=== PATIENT | male | born 1950 | race Caucasian/White ===

== ENCOUNTER 2016-09-15 12:51 | Inpatient (IN) | payer BC ==
[~2016-09-15] VITALS: Ht 177.8 cm; Wt 95.5 kg
--- NOTE | ~2016-09-15 | OP ---
PATIENT NAME: DAISY NG MEDICAL RECORD: [id number] :54 LOCATION:[facility] ADMISSION DATE:09/15/16 SURGEON: DAMIEN FRANKS MD DATE OF OPERATION: 09/16/2016 PREOPERATIVE DIAGNOSES: 1. Left foot abscess. 2. Hypertension. POSTOPERATIVE DIAGNOSES: 1. Left foot abscess. 2. Hypertension. PROCEDURE: I&D of the left foot. SURGEON: Damien Franks MD REPORT OF PROCEDURE: The patient's left foot was prepped and draped in sterile fashion. A skin incision was made through an area of necrosis between the great and the second toe in the left foot. Once we did this, we encountered a small pocket of purulence and cultures were taken times 2. We opened up this pocket and irrigated out any of the necrotic tissue and purulence using peroxide and saline solution. At the conclusion, there was good clear return of fluid and no sign of any further pockets present. We then packed the wound with half inch packing strips and dressed it with 4 x 4s and Kerlix. COMPLICATIONS: None. CONDITION: Stable. ANESTHESIA: Regional. BLOOD LOSS: Minimal. TRANSINT:[id number] Voice Confirmation ID: [id number] DOCUMENT ID: [id number] DAMIEN FRANKS MD CC: [id number] DICTATION DATE: 10/03/16 1256 DIRECTOR OF PULMONARY UNIT: 10/03/162041 DIS IN 09/16/16 [facility] [address] [place] [address]
--- NOTE | ~2016-09-15 | DS ---
PATIENT:DAISY NG :54 MEDICAL RECORD: [id number] DISCHARGE SUMMARY ADMISSION DATE: 09/15/16 DISCHARGE DATE: 09/16/16 DATE OF ADMISSION: 09/15/2016 DATE OF DISCHARGE: 09/16/2016 ADMISSION DIAGNOSES: 1. Left foot cellulitis. 2. Hypertension. DISCHARGE DIAGNOSES: 1. Left foot cellulitis/abscess. 2. Hypertension. PROCEDURE: I&D of the left foot. CONSULTATIONS: None. REPORT OF HOSPITALIZATION: The patient was admitted to the hospital through the clinic for IV antibiotics for an erythematous cellulitic area on the right foot. There was some necrotic tissue present, but this appeared to be quite shallow. By the following morning, the swelling had gone down significantly and we can tell there was a fluid collection present consistent with an abscess. He was taken to the operating room where he underwent an incision and drainage. Cultures were taken. Following this, the patient was discharged home. The patient was placed on Bactrim b.i.d. for the infection. The patient's had recently been in the hospital with an MSSA infection. DISCHARGE INSTRUCTIONS: Return to clinic or call with any questions, concerns, fevers, chills, nausea, vomiting or worsening abdominal pain. ACTIVITIES: As tolerated. FOLLOWUP: In clinic with me in 1 week. DISCHARGE MEDICATIONS: 1. Aspirin 81 mg daily. 2. [place] 10 p.r.n. 3. Bactrim-DS 1 tab p.o. b.i.d. TRANSINT:[id number] Voice Confirmation ID: [id number] DOCUMENT ID: [id number] DAMIEN FRANKS MD CC: [id number] DICTATION DATE: 10/03/16 1254 MARKET RESEARCH SPECIALIST: 10/04/16 0236 DIS IN 09/16/16 [facility] [address] [place] [id number]
[~2016-09-15 12:51] MED LIST: BAYER CHEWABLE81 MG PO; HYDROCODONE-APA1 TAB PO
[2016-09-15 14:02] VITALS: BP 142/79
[2016-09-15 14:14] VITALS: Ht 177.8 cm; Wt 95.5 kg
[2016-09-15 15:28] LABS: BASOPHILS 0.3 % (0-2); EOSINOPHILS 3.2 % (0-7); HEMATOCRIT 41.9 % (42.0-54.0); HEMOGLOBIN 14.1 g/dL (13.5-17.5); IMMATURE GRANULOCYTES 0.3 % (0-5); LYMPHOCYTES 18.3 % (15-50); MCH 30.3 pg (26.0-34.0); MCHC 33.7 g/dL (31.0-37.0); MCV 90.1 fL (80.0-100.0); MEAN PLATELET VOLUME 12.1 fL (7.4-10.4); MONOCYTES 9.9 % (2-11); PLATELET COUNT 184 10x3/uL (130-400); RBC 4.65 10x6/uL (4.20-6.10); RDW 13.7 % (11.5-14.5); WBC 6.8 10x3/uL (4.8-10.8)
--- NOTE | 2016-09-15 18:45 | NUR ---
REMAINS WITHOUT DISTRESS.DENIES NEEDS.CALL LIGHT IN REACH
[2016-09-15 20:00] VITALS: BP 144/71
--- NOTE | 2016-09-15 20:00 | NUR ---
ASSESSMENT PER FLOWSHEET. DRESSING TO LEFT FOOT C/D/I. PT SITTING UPRIGHT IN CHAIR AT BEDSIDE WITH BOTH LEGS ELEVATED. IV PATENT LEFT FOREARM SALINE LOCKED.
--- NOTE | 2016-09-15 21:15 | NUR ---
MEDS GIVEN PER MAR.
--- NOTE | 2016-09-16 | NUR ---
RESTING IN BED DENIES PAIN OR DISCOMFORT.
[2016-09-16 04:00] VITALS: BP 122/67
--- NOTE | 2016-09-16 05:08 | NUR ---
EYES CLOSED RESPIRATIONS WITH EASE AND UNLABORED. DENIES PAIN OR DISCOMFORT.
--- NOTE | 2016-09-16 08:02 | NUR ---
AWAKE AND ALERT AT THIS TIME. DRESSING TO RIGHT FOOT WITHOUT DRAINAGE. SCHEDULED ASPIRIN ADMINISTERED AT THIS TIME. ASSESSMENT PERFORMED PER FLOWSHEET. CALL LIGHT IN REACH, WILL CONTINUE WITH PLAN OF CARE.
[2016-09-16 08:18] VITALS: BP 127/81
--- NOTE | 2016-09-16 09:20 | NUR ---
PT NPO FOR SURGERY AT THIS TIME. CONSENT FORMS SIGNED AND WITNESSED AND HIBICLENS PROVIDED. CALL LIGHT IN REACH, WILL CONTINUE WITH PLAN OF CARE.
[2016-09-16 11:47] VITALS: BP 152/86
[2016-09-16] MEDS ORDERED: HYDROCODONE-APA1 TAB PO (14:58)
[2016-09-16] MEDS ORDERED: BACTRIM DS TABL1 TAB PO (14:58)
[2016-09-16 15:07] VITALS: BP 122/90
--- NOTE | 2016-09-16 15:15 | NUR ---
RECEIVED FROM SURGERY PER BED. DRESSING NOTED TO LEFT FOOT/TOE CLEAN DRY AND INTACT. NO COMPLAINTS OF PAIN OR DISCOMFORT. VS 97.0 75 18 122/90 OXYGEN RA 100%. DR FRANKS HERE AND IS DISCHARGING PATIENT. CALL LIGHT IN REACH. TRAY ORDERED
--- NOTE | 2016-09-16 16:41 | NUR ---
IV REMOVED FROM ARM WITH TIP INTACT. DISCHARGE INSTRUCTIONS REVIEWED WT PT AND SPOUSE. QUESITONS ANSWERED. DISCHARGED WITH BELONGINGS IN WC TO FRONT DOOR.
[2016-09-26 18:10] LABS: AEROBE ID Preliminary report (()); RESULT 1 Gram positive rods (())
== END 2016-09-16 16:45 | disposition home or self-care (01) | DRG 603 ==
LOC: D.MS 12:51 → OBSVTIME 12:51 → D.MS 12:53
PROVIDERS: ADMIT Surgery
PROC: 0H9NXZZ Drainage of Left Foot Skin, External Approach (ICD-10-PCS; principal; 2016-09-16 12:15)
DX: L03.115 Cellulitis of right lower limb (principal); R21 Rash and other nonspecific skin eruption

== ENCOUNTER → 2017-10-29 14:30 | Outpatient (CLI) | payer MEDICARE, BC ==
[2016-09-15 14:14] VITALS: BMI 30.1
[~2017-10-29 14:30] MED LIST changes: +BACTRIM DS TABL1 TAB PO
== END | disposition home or self-care (01) ==
LOC: D.CT 14:30
DX: R93.8 Abnormal findings on diagnostic imaging of other specified body structures (principal)

== ENCOUNTER → 2018-01-15 11:06 | Outpatient (CLI) | payer MEDICARE, BC ==
[2016-09-15 14:14] VITALS: BMI 30.1
== END | disposition home or self-care (01) ==
LOC: D.CT 11:06
DX: R93.89 Abnormal findings on diagnostic imaging of other specified body structures (principal)

== ENCOUNTER → 2018-03-02 15:35 | Outpatient (CLI) | payer MEDICARE, BC ==
[2016-09-15 14:14] VITALS: BMI 30.1
[2018-03-07 10:07] LABS: FUNGAL - ASP FLAVUS Negative (Neg:<1:1); FUNGAL - ASP NIGER Negative (Neg:<1:1); FUNGAL - ASPER FUMIGATUS Negative (Neg:<1:1)
== END | disposition home or self-care (01) ==
LOC: D.LABREF 15:35
PROVIDERS: Internal Medicine Pulmonary Disease
DX: R91.1 Solitary pulmonary nodule (principal)

== ENCOUNTER 2018-06-01 08:07 | Day surgery (SDC) | payer MEDICARE, BC ==
[~2018-06-01] VITALS: Ht 177.8 cm; Wt 90.7 kg
[2018-06-01 08:34] LABS: HEMATOCRIT 42.2 % (42.0-54.0); MCH 30.1 pg (26.0-34.0); MCHC 33.2 g/dL (31.0-37.0); MCV 90.8 fL (80.0-100.0); MEAN PLATELET VOLUME 11.3 fL (7.4-10.4); RBC 4.65 10x6/uL (4.20-6.10); RDW 14.2 % (11.5-14.5); WBC 4.9 10x3/uL (4.8-10.8)
[2018-06-01 10:01] VITALS: BP 151/85; BMI 28.7
--- NOTE | 2018-06-01 13:55 | NUR ---
[address] FERRER. INFORMED OF DARK RED BLOODY URINE. STATES HE IS AWARE & THAT IS WHEY PATIENT HAS CATHETER. Marian DIAZ R.N.
--- NOTE | 2018-06-01 14:56 | NUR ---
[address] FERRER. INFORMED DR. FERRER OF DARK RED URINARY DRAINAGE. DR. FERRER STATES HE IS AWARE OF IT. Marian DIAZ R.N.
--- NOTE | 2018-06-01 15:07 | NUR ---
1415 PT UP IN BATHROOM. STATES HE FEEL HE NEEDS TO STRAIN TO VOID. LARGE BRIGHT RED CLOT NOTED ON MEATUS. CALL PLACED TO DR. FERRER. ORDER RECEIVED FOR IRRIGATION. Marian DIAZ R.N. [id number] REPORT @ BEDSIDE TO JESSIKA RICHARDSON R.N.. Marian DIAZ R.N.
--- NOTE | 2018-06-01 15:13 | NUR ---
1435 DEE CATHETER IRRIGATED WITH 60CC STERILE NS USING STERILE TECHNIQUE. DILUTED BLOODY URINE DRAINING FROM DEE INTO BAG. 1447 DR FERRER AT BEDSIDE AND HAS DECIDED TO D/C DEE AND LET PT TRY TO VOID ON HIS OWN. ENCOURAGED PT TO DRINK A LOT OF FLUIDS. 1450 DEE CATHETER DC'D PER DR FERRER. 1455 PT UP TO BATHROOM TO TRY TO VOID. PASSED A CLOT FROM MEATUS.
--- NOTE | 2018-06-01 15:43 | NUR ---
1530 PT UP TO VOID. STATES VERY LITTLE URINE. MOSTLY CLOTS. STATES HE STILL HAS A STRONG URGE TO VOID BUT STATES IT IS NOT BAD WHEN THE DEE WAS IN. PT DRINKING WATER AND CRANBERRY JUICE
--- NOTE | 2018-06-01 15:54 | OP ---
PATIENT NAME: DAISY NG MEDICAL RECORD: [id number] :54 LOCATION:D[facility] ADMISSION DATE: SURGEON: GANESH FERRER MD DATE OF OPERATION: 06/01/2018 SURGEON: Ganesh Ferrer MD ANESTHESIA: TIVA by Naveen De La O CRNA. DIAGNOSES: Obstructive BPH, redundant penile foreskin. PROCEDURE: Cystoscopy, UroLift times 6 implants attempted, 5 held. FINDINGS: On cystoscopy, no urethral strictures. Large obstructive lateral lobes of the prostate. Single ureteral orifices bilaterally in the bladder. The bladder is heavily trabeculated with cellules and diverticula. No bladder tumors were seen. The penile foreskin length cannot be reduced anymore without causing tethering in full erection. Thus, the circumcision was canceled. Prostate size is 40 grams on digital rectal examination. IPSS equals 13. Quality of life score is 6. PSA is 1.62 on 10/26/2017. BLOOD LOSS: Minimal. CLINICAL HISTORY: This is a 68-year-old male, who requested to have a circumcision done as he felt that it was difficult to get the foreskin retracted and he was having problems with recurring balanitis. He also complains of a slow urinary flow and difficulty emptying his bladder. He has nocturia every 1 hour to every 3 hours with a net of nocturia times 3. In the daytime, he has to void every half an hour up to 3 hours. There urge incontinence, hesitancy in getting started, a slow urinary flow, and dribbling postvoid. He saw urologist 15 years ago for his voiding symptoms. He was prescribed Flomax, which gave him a massive headache as well as this ejaculatory dysfunction and loss of orgasms. He stopped taking the medication. He was scheduled to have an elective circumcision as well as cystoscopy and UroLift implantation. He is not allergic to any medications. He was given Ancef orientation and mobility specialist to the OR. DESCRIPTION OF PROCEDURE: The patient was given IV sedation. He was then placed into dorsal lithotomy position and prepped and draped. Using the scope, we found the findings as above. We started with the bladder neck level implants. With the UroLift device in the bladder and then rotated laterally at the lateral anterior bladder neck region, we moved distally for about 1.5 cm. Yearly UroLift device was fired. On the right side, the device held with no issues. On the left side, when I was removing device, the clip fell off. I had to fire another device into the left side. The clip that fell off was removed later by cystoscopy and using grasping forceps to remove the clip. We then moved to the atypical level at the level of verumontanum. Here another 2 devices are fired without incident into the lateral anterior urethra. Looking with the visual obturator, we noticed that there was still a bit of encroachment into the urethra from the left side. At the midpoint of the left anterior lateral urethra, we inserted a fifth device. This also held. Now, he has a nice urethra, which was opened along the anterior urethral channel. There was a bit of bleeding as the prostate was quite vascular and the placement of the UroLift implants caused some bleeding. I will put a Dalton catheter in at the end of the case to bag drainage. This will be removed in a few days' time when the bleeding ceases. We then turned our attention to the circumcision. I OPERATIVE REPORT [id number] DAISY NG pulled the penis to full erectile length manually. When the full erectile length was observed, I could see that there would be minimal skin redundancy. If I took any more skin off then the patient will have issues with tethering of the penile skin with an erection. Therefore, the circumcision was abandoned. We placed a 16-Swiss Dalton catheter to bag drainage. The patient will be going home today. I will see him in followup in a few days' time to remove the Dalton catheter for a voiding trial. TRANSINT:[id number] Voice Confirmation ID: [id number] DOCUMENT ID: [id number] GANESH FERRER MD at 1554 CC: [id number] DICTATION DATE: 06/01/18 1231 DIRECTOR PEDIATRIC: 06/01/18 1359 [facility] [address] [place] [address]
--- NOTE | 2018-06-01 16:23 | NUR ---
1600 BLADDER SCAN DONE WHICH SHOWS 65CC URINE IN BLADDER. DR. FERRER HERE AND AWARE OF RESULTS. SPOKE WITH PT AND PT'S . DECISION HAS BEEN MADE TO KEEP PATIENT FOR 23 HOUR OBSERVATION.
--- NOTE | 2018-06-01 17:05 | NUR ---
1700 TRANSFERRING PT TO 1207 VIA STRETCHER. TO GIVE REPORT AT BEDSIDE TO PEGGY CRUZ.
--- NOTE | 2018-06-01 17:38 | NUR ---
RECEIVED PT TO ROOM 1207, PT A/O X4, RESP EVEN AND NONLABORED ON RA. ORIENTED PT TO ROOM AND CALL LIGHT. WILL ASSESS PT AND START PLAN OF CARE.
[2018-06-01 17:58] VITALS: Ht 177.8 cm; Wt 90.7 kg
--- NOTE | 2018-06-01 19:16 | NUR ---
PATIENT UP TO THE RESTROOM. PATIENT STATED HE FEELS THE URGE TO URINATE ALL THE TIME AND IS ONLY GOING A VERY SMALL AMOUNT EACH TIME. PATIENT REQUESTED TO BE BE BLADDER SCANNED TO SEE IF HE IS RETAINING URINE.
--- NOTE | 2018-06-01 19:28 | NUR ---
BLADDER SCAN REVEALED 279 ML
--- NOTE | 2018-06-01 19:30 | NUR ---
PAGED DR. FERRER IN REGARDS TO PATIENT NOT BEING ABLE TO VOID AND TO CLARIFY ORDER.
--- NOTE | 2018-06-01 19:38 | NUR ---
SPOKE WITH DR. FERRER TO CLARIFY ORDER. HE CONFIRMED THAT A DEE CAN BE PLACED AND TO IRRIGATE.
[2018-06-01 20:00] VITALS: BP 129/69
--- NOTE | 2018-06-01 20:15 | NUR ---
PLACED 16F DEE. IRRIGATED WITH NORMAL SALINE. 340ML RETURN.
--- NOTE | 2018-06-01 20:47 | NUR ---
PATIENT RESTING IN BED WITH NO S/S OF DISTRESS. ADMINISTERED MEDS PER ORDERS. PATIENT DENIES NEEDS AT THIS TIME. BED IN LOWEST POSITION AND CALL LIGHT WITHIN REACH. ENCOURAGED THE PATIENT TO CALL IF HE HAS NEEDS. WILL CONTINUE TO MONITOR. PATIENT VERBALIZED RELIEF WITH DEE PLACEMENT
[2018-06-02] VITALS: BP 153/82
--- NOTE | 2018-06-02 02:10 | NUR ---
IRRIGATED THE PATIENT'S DEE CATH
[2018-06-02 04:00] VITALS: BP 142/88
[2018-06-02 07:30] VITALS: BP 146/92
--- NOTE | 2018-06-02 07:35 | NUR ---
REPORT RECEIVED. WILL CONTINUE WITH POC. PT CURRENTLY LYING SEMI FOWLERS. CALL LIGHT W/I REACH. PT IS AAO AND UP AD JOHNNY. RR EVEN AND UNLABORED ON RA. DEE IN PLACE AND DRAINING BLOOD TINGED URINE WITH SEDEMENT AND FIBROUS CLOTS. IRRIGATED DEE WITH 60ML OF NS. L.HAND PIV IS SALINE LOCKED. PT DENIES ANY NEEDS AT THIS TIME. WILL CTM
[2018-06-02 12:11] VITALS: BP 149/77
--- NOTE | 2018-06-02 12:25 | NUR ---
IRRIGATED DEE CATH WITH 60ML OF NS. DEE DRAINING BLOODY URINE. WILL CTM. DEE IN PLACE AND STATLOK INTACT.
--- NOTE | 2018-06-02 14:22 | NUR ---
PT DISCHARGED HOME WITH FAMILY. PT CHOSE TO AMBULATE OUT AND REFUSED WHEELCHAIR. SCRIPT GIVEN. PIV REMOVED WITH CATHETER TIP FULLY INTACT. PT SIGNED ALL DISCHARGE INSTRUCTION AND REMOVED ALL VALUABLES FROM THE ROOM.
== END 2018-06-02 14:24 | disposition home or self-care (01) ==
LOC: D.OPS 08:07 → D.M3 08:07 → D.OPS 09:30 → D.PAN 10:00 → D.M3 17:14 → D.OPS 06-02 14:24
PROVIDERS: Anesthesiology
DX: N40.1 Benign prostatic hyperplasia with lower urinary tract symptoms (principal); N13.8 Other obstructive and reflux uropathy; N39.41 Urge incontinence; R39.11 Hesitancy of micturition; R39.14 Feeling of incomplete bladder emptying; R35.1 Nocturia; R39.12 Poor urinary stream; N32.89 Other specified disorders of bladder; N32.3 Diverticulum of bladder; N47.8 Other disorders of prepuce; Z01.812 Encounter for preprocedural laboratory examination

== ENCOUNTER → 2018-06-07 18:31 | Outpatient (CLI) | payer MEDICARE, BC | END | disposition home or self-care (01) | LOC: D.LABREF 18:31 | DX: Z96.0 Presence of urogenital implants (principal); N39.0 Urinary tract infection, site not specified ==

== ENCOUNTER → 2018-07-05 11:29 | Outpatient (CLI) | payer MEDICARE, BC | END | disposition home or self-care (01) | LOC: D.CT 11:29 | PROVIDERS: ATTEND Internal Medicine Pulmonary Disease | DX: R93.89 Abnormal findings on diagnostic imaging of other specified body structures (principal) ==

== ENCOUNTER → 2018-12-16 09:12 | Outpatient (CLI) | payer MEDICARE, BC | END | disposition home or self-care (01) | LOC: D.CT 09:12 | PROVIDERS: ATTEND Internal Medicine Pulmonary Disease | DX: R93.89 Abnormal findings on diagnostic imaging of other specified body structures (principal) ==

== ENCOUNTER → 2019-11-25 10:28 | Outpatient (CLI) | payer MEDICARE, BC | END | disposition home or self-care (01) | LOC: D.MRI 10:28 | PROVIDERS: ATTEND Clinical Nurse Specialist Adult Health | DX: S89.91XD Unspecified injury of right lower leg, subsequent encounter (principal) ==